=== PATIENT | male | born 1985 ===

== ENCOUNTER 2019-06-29 08:41 | Day surgery (SDC) | payer OTHER ==
[~2019-06-29 08:41] MED LIST: ASPIR 8181 MG PO; CLONAZEPAM1 M1 PO; PAXIL20 MG PO; PRILOSEC OTC20 MG PO; TAMBOCOR150 MG PO; TENORMIN25 MG PO
== END 2019-06-29 21:30 | disposition home or self-care (01) ==
LOC: CIR.AMB 08:41
DX: K60.1 Chronic anal fissure (principal)